=== PATIENT | male | born 1980 | race Asian ===

== ENCOUNTER 2017-09-20 07:37 | Emergency (ER) | payer SELFPAY ==
[~2017-09-20] VITALS: Ht 170.2 cm; Wt 75.0 kg
[2017-09-20 08:05] VITALS: BP 130/75
== END 2017-09-20 08:20 | disposition home or self-care (01) ==
LOC: EMS 07:38
DX: F41.9 Anxiety disorder, unspecified (principal); F12.10 Cannabis abuse, uncomplicated
CPT/HCPCS: 99281